=== PATIENT | male | born 1960 | race Native Hawaiian/Other Pacific Islander ===

== ENCOUNTER 2016-11-23 10:35 | Outpatient (CLI) | payer OTHER ==
[~2016-11-23 10:35] MED LIST: ALLO100T22 PO; CLOPIDOGREL75 MG PO; FURO40TA93 PO; HYDR-2748 PO; HYDRTAB76 PO; METO50TA63 PO; NEXIUM40 M1 PO; POTA20TA4 PO; QUINAPRIL20 MG PO; SIMV40TA57 PO; WARF1TAB7 PO; WELLBUTRIN75 MG PO
== END 2016-11-23 10:44 | disposition short-term general hospital (02) ==
LOC: AMB 10:35
DX: R10.84 Generalized abdominal pain (principal); R19.7 Diarrhea, unspecified
CPT/HCPCS: A0425; A0427

== ENCOUNTER 2016-11-23 10:46 | Inpatient (IN) | payer OTHER ==
[2016-11-23] VITALS (10 sets, daily range): BP systolic 116–158; BP diastolic 77–95; TEMP 97.8–98.1
[~2016-11-23] VITALS: Ht 182.9 cm; Wt 93.4 kg
[2016-11-23 12:01] LABS: PLATELET COUNT 101 K/uL (142-355)
[2016-11-23 12:11] LABS: POTASSIUM 3.5 mmol/L (3.6-5.2); SODIUM 137 mmol/L (136-145)
[2016-11-24] VITALS: BP 148/85; TEMP 98.8
[2016-11-24 00:31] VITALS: BP 125/69; TEMP 98.9; Ht 182.9 cm; Wt 93.4 kg
[2016-11-24 04:00] VITALS: BP 121/78; TEMP 98.9
[2016-11-24 08:00] VITALS: BP 133/67; TEMP 98.3
[2016-11-24 09:54] LABS: PLATELET COUNT 72 K/uL (142-355)
[2016-11-24 10:48] LABS: POTASSIUM 3.2 mmol/L (3.6-5.2); SODIUM 136 mmol/L (136-145)
[2016-11-24 16:00] VITALS: BP 123/75; TEMP 98.6
[2016-11-24 20:00] VITALS: BP 132/73; TEMP 98.9
[2016-11-25] VITALS: BP 133/77; TEMP 98.4
[2016-11-25 04:00] VITALS: BP 113/68; TEMP 98.7
[2016-11-25 05:43] LABS: PLATELET COUNT 82 K/uL (142-355)
[2016-11-25 05:52] LABS: POTASSIUM 3.4 mmol/L (3.6-5.2); SODIUM 141 mmol/L (136-145)
[2016-11-25 08:00] VITALS: BP 125/67; TEMP 99.2
[2016-11-25 12:00] VITALS: BP 127/72; TEMP 98.7
[2016-11-25 16:00] VITALS: BP 128/61; TEMP 99
[2016-11-25 20:00] VITALS: BP 164/87; TEMP 98.1
[2016-11-26] VITALS: BP 149/94; TEMP 98.1
[2016-11-26 04:00] VITALS: BP 149/94; TEMP 98
[2016-11-26 06:09] LABS: PLATELET COUNT 82 K/uL (142-355)
[2016-11-26 06:15] LABS: SODIUM 138 mmol/L (136-145)
[2016-11-26 08:00] VITALS: BP 134/77; TEMP 97.5
[2016-11-26 12:00] VITALS: BP 135/73; TEMP 97.8
[2016-11-26 16:59] VITALS: BP 146/77; TEMP 98
[2016-11-26 20:00] VITALS: BP 139/78; TEMP 97.8
[2016-11-27] VITALS: BP 154/87; TEMP 97.8
[2016-11-27 04:00] VITALS: BP 133/74; TEMP 97.9
[2016-11-27 05:33] LABS: PLATELET COUNT 104 K/uL (142-355)
[2016-11-27 05:53] LABS: POTASSIUM 4.6 mmol/L (3.6-5.2); SODIUM 134 mmol/L (136-145)
[2016-11-27 08:00] VITALS: BP 121/72; TEMP 98
[2016-11-27 11:58] VITALS: BP 141/86; TEMP 97.7
[2016-11-27 16:00] VITALS: BP 148/84; TEMP 98.3
[2016-11-27 20:00] VITALS: BP 154/73; TEMP 98
[2016-11-28] VITALS: BP 150/84; TEMP 98.1
[2016-11-28 04:00] VITALS: BP 145/84; TEMP 98
[2016-11-28 05:57] LABS: PLATELET COUNT 124 K/uL (142-355)
[2016-11-28 06:08] LABS: POTASSIUM 3.9 mmol/L (3.6-5.2); SODIUM 137 mmol/L (136-145)
[2016-11-28 08:00] VITALS: BP 135/77; TEMP 98.1
[2016-11-28 12:00] VITALS: BP 147/91; TEMP 97.9
== END 2016-11-28 15:18 | disposition home or self-care (01) | DRG 391 ==
LOC: ED 10:46 → MED/SURG 17:08
PROVIDERS: ADMIT Specialist
PROC: 0DB68ZX Excision of Stomach, Via Natural or Artificial Opening Endoscopic, Diagnostic (ICD-10-PCS; principal; 2016-11-24)
PROC: 0DB98ZX Excision of Duodenum, Via Natural or Artificial Opening Endoscopic, Diagnostic (ICD-10-PCS; 2016-11-24)
DX: K57.32 Diverticulitis of large intestine without perforation or abscess without bleeding (principal); B20 Human immunodeficiency virus [HIV] disease; K85.90 Acute pancreatitis without necrosis or infection, unspecified; I85.00 Esophageal varices without bleeding; K29.00 Acute gastritis without bleeding; K21.9 Gastro-esophageal reflux disease without esophagitis; K29.80 Duodenitis without bleeding; K44.9 Diaphragmatic hernia without obstruction or gangrene; D69.6 Thrombocytopenia, unspecified; E83.42 Hypomagnesemia; E83.51 Hypocalcemia; B19.20 Unspecified viral hepatitis C without hepatic coma; K70.30 Alcoholic cirrhosis of liver without ascites
CPT/HCPCS: 36415; 80048; 80053; 82150; 83605; 83690; 83735; 84100; 85027; 85610; 86361; 96361; 96365; 96375; 96376; 99284; J0744; J1885; J2060; J2270; J2405; J2704; J3490; J7120; Q9963

== ENCOUNTER 2017-05-19 22:51 | Outpatient (CLI) | payer OTHER | END 2017-05-19 23:01 | disposition short-term general hospital (02) | LOC: AMB 22:51 | DX: M25.552 Pain in left hip (principal); W01.0XXA Fall on same level from slipping, tripping and stumbling without subsequent striking against object, initial encounter; Y92.096 Garden or yard of other non-institutional residence as the place of occurrence of the external cause; M21.862 Other specified acquired deformities of left lower leg | CPT/HCPCS: A0425; A0427 ==

== ENCOUNTER 2017-05-19 23:05 | Emergency (ER) | payer OTHER ==
[~2017-05-19] VITALS: Ht 182.9 cm; Wt 99.8 kg
[2017-05-19 23:40] LABS: PLATELET COUNT 56 K/uL (142-355)
[2017-05-19 23:42] LABS: POTASSIUM 3.4 mmol/L (3.6-5.2); SODIUM 136 mmol/L (136-145)
[2017-05-20 01:40] VITALS: BP 152/78; TEMP 98.4
== END 2017-05-20 01:44 | disposition short-term general hospital (02) ==
LOC: ED 23:05
PROVIDERS: Family Medicine
PROC: 0T9B70Z Drainage of Bladder with Drainage Device, Via Natural or Artificial Opening (ICD-10-PCS; principal; 2017-05-19)
DX: S72.092A Other fracture of head and neck of left femur, initial encounter for closed fracture (principal); W01.0XXA Fall on same level from slipping, tripping and stumbling without subsequent striking against object, initial encounter; Y92.096 Garden or yard of other non-institutional residence as the place of occurrence of the external cause
CPT/HCPCS: 36415; 51702; 80053; 80307; 81000; 83735; 85027; 96365; 96374; 96375; 96376; 99284; G0479; J1170; J2405

== ENCOUNTER 2017-05-20 01:45 | Outpatient (CLI) | payer OTHER | END 2017-05-20 03:09 | disposition short-term general hospital (02) | LOC: AMB 01:45 | DX: S72.092A Other fracture of head and neck of left femur, initial encounter for closed fracture (principal); W01.0XXA Fall on same level from slipping, tripping and stumbling without subsequent striking against object, initial encounter; Y92.096 Garden or yard of other non-institutional residence as the place of occurrence of the external cause | CPT/HCPCS: A0425; A0427 ==

== ENCOUNTER 2017-06-05 18:10 | Outpatient (CLI) | payer OTHER | END 2017-06-05 18:16 | disposition short-term general hospital (02) | LOC: AMB 18:10 | DX: M25.552 Pain in left hip (principal); M25.551 Pain in right hip; G89.18 Other acute postprocedural pain | CPT/HCPCS: A0425; A0427 ==

== ENCOUNTER 2017-06-05 18:19 | Emergency (ER) | payer OTHER ==
[~2017-06-05] VITALS: Ht 182.9 cm; Wt 90.7 kg
[2017-06-05 19:26] LABS: POTASSIUM 3.9 mmol/L (3.6-5.2); SODIUM 138 mmol/L (136-145)
[2017-06-05 19:38] LABS: PLATELET COUNT 142 K/uL (142-355)
[2017-06-05 21:56] LABS: PARTIAL THROMBOPLASTIN TIME 21.6 SECONDS (24.5-33.6)
[2017-06-06 01:35] VITALS: BP 137/84; TEMP 98.6
== END 2017-06-06 01:37 | disposition short-term general hospital (02) ==
LOC: ED 18:19
DX: M51.36 Other intervertebral disc degeneration, lumbar region (principal); M12.9 Arthropathy, unspecified; K57.30 Diverticulosis of large intestine without perforation or abscess without bleeding; K74.60 Unspecified cirrhosis of liver; K80.20 Calculus of gallbladder without cholecystitis without obstruction; L03.116 Cellulitis of left lower limb; D72.819 Decreased white blood cell count, unspecified; I82.412 Acute embolism and thrombosis of left femoral vein; Z98.890 Other specified postprocedural states
CPT/HCPCS: 36415; 80048; 85027; 85379; 85610; 85730; 99285; J1885

== ENCOUNTER 2017-06-06 01:47 | Outpatient (CLI) | payer OTHER | END 2017-06-06 03:11 | disposition short-term general hospital (02) | LOC: AMB 01:47 | DX: M51.36 Other intervertebral disc degeneration, lumbar region (principal); M12.9 Arthropathy, unspecified; K57.30 Diverticulosis of large intestine without perforation or abscess without bleeding; K74.60 Unspecified cirrhosis of liver; K80.20 Calculus of gallbladder without cholecystitis without obstruction; L03.116 Cellulitis of left lower limb; D72.819 Decreased white blood cell count, unspecified; I82.412 Acute embolism and thrombosis of left femoral vein; Z98.890 Other specified postprocedural states | CPT/HCPCS: A0425; A0427 ==

== ENCOUNTER 2017-11-28 10:51 | Outpatient (CLI) | payer OTHER | END 2017-11-28 21:45 | disposition home or self-care (01) | LOC: RAD 10:51 | DX: M25.552 Pain in left hip (principal) ==

== ENCOUNTER 2020-10-24 22:28 | Emergency (ER) | payer OTHER ==
[~2020-10-24] VITALS: Ht 182.9 cm; Wt 99.8 kg
[2020-10-24 23:30] LABS: PLATELET COUNT 78 K/uL (142-355)
[2020-10-24 23:58] LABS: PARTIAL THROMBOPLASTIN TIME 28.8 SECONDS (24.5-33.6)
[2020-10-25 00:05] LABS: POTASSIUM 3.3 mmol/L (3.6-5.2); SODIUM 134 mmol/L (136-145)
[2020-10-25 01:48] VITALS: BP 142/79; TEMP 98.8
== END 2020-10-25 02:38 | disposition home or self-care (01) ==
LOC: ED 22:28
PROVIDERS: Hospitalist
DX: K29.70 Gastritis, unspecified, without bleeding (principal); K74.69 Other cirrhosis of liver
CPT/HCPCS: 36415; 80053; 81000; 82550; 83880; 84484; 85027; 85610; 85730; 93005; 96374; 96375; 99284; J1940; J2270; J2405; Q9963

== ENCOUNTER 2020-11-20 14:39 | Emergency (ER) | payer OTHER ==
[~2020-11-20] VITALS: Ht 182.9 cm; Wt 99.8 kg
[2020-11-20 15:46] LABS: PLATELET COUNT 75 K/uL (142-355)
[2020-11-20 16:01] LABS: SODIUM 135 mmol/L (136-145)
[2020-11-20 23:22] VITALS: BP 121/85; TEMP 97.9
== END 2020-11-20 23:22 | disposition short-term general hospital (02) ==
LOC: ED 14:39
PROVIDERS: Emergency Medicine Emergency Medical Services
DX: K74.69 Other cirrhosis of liver (principal); R18.8 Other ascites; R60.1 Generalized edema
CPT/HCPCS: 80053; 80307; 80320; 81000; 82140; 83605; 83880; 84484; 85027; 85610; 87635; 93005; 96365; 96375; 96376; 99285; J1940; J2270; J2405; U0003